=== PATIENT | female | born 1955 | race Caucasian/White ===

== ENCOUNTER → 2018-01-06 12:55 | Outpatient (CLI) | payer MEDICARE, MEDICAID, SELFPAY ==
--- NOTE | 2018-01-06 13:29 | CT_ITS ---
STUDY: LOW DOSE CT LUNG CANCER SCREENING REASON FOR EXAM: Female, 62 years old. LUNG SCREENING RADIATION DOSAGE (If Supplied By Facility): CTDIvol = ( 2.01 ) mGy, DLP = ( 59.42 ) mGycm TECHNIQUE: No contrast was administered. Low dose technique was utilized (average mAS-38 and kVp 120). 1.25 mm axial source images with a slice interval of 1.25-mm were reconstructed in lung windows. 2.5 mm axial source images with a slice interval of 2.5-mm were reconstructed in lung windows. 5.0 mm axial source images with a slice interval of 5.0-mm were reconstructed in soft tissue windows. Nodule measured using lung windows on PACS and/or independent workstation with automated measurement of minimum and maximum diameter. Nodule measurement reported as average diameter rounded to the nearest whole number. Growth is defined as an increase ins size of greater than 1.5 mm. COMPARISON: None. NODULES: Subpleural reticular opacities are seen in both lungs more prominent in lung bases suggesting chronic interstitial lung disease. Emphysematous changes are noted in both lungs more prominent in the upper lobes subpleural region. There is no demonstrated pleural abnormality. Normal heart and pericardium. Normal mediastinum. Normal hilar regions. Normal unenhanced pulmonary arteries. Normal aorta arch and descending thoracic aorta. There are multi-level degenerative changes of the thoracic spine. There is no demonstrated abnormality of the visualized upper abdomen. CT/Low Dose CT Lung Screening IMPRESSION: Lung-RADS category 2. Mild chronic interstitial lung disease. COPD and emphysema in both lungs more prominent in the upper lobes. Recommendation: Routine screening CT scan in one year. IMPORTANT NOTES FOR USE: ACR Lung-RADS Version 1.0 Assessment Categories Release Date: February 21, 2014 Category: Coded 0-4 bases on nodule(s) with highest degree of suspicion. Negative screen is defined as categories 1 and 2; a positive screen is defined as categories 3 and 4. Category 3 and 4A nodules that are unchanged on interval CT should be coded as category 2, and individuals returned to screening in 12 months. Category 4X: Category 3 or 4 nodules with additional imaging findings that increase the suspicion of lung cancer, such as spiculation, GGN that doubles in size in 1 year, enlarged lymph notes, etc. Category Modifiers: S (significant finding unrelated to lung cancer) and C (prior history of treated lung cancer) may be added to the 0-4 Lung-RADS Electronically Signed: Brielle Main MD at 7:10 EDT Tel , Service support ,
== END ==
PROVIDERS: PCP Nurse Practitioner Family; Visit Provider Internal Medicine
DX: Z12.2 Encounter for screening for malignant neoplasm of respiratory organs (principal); J44.9 Chronic obstructive pulmonary disease, unspecified; Z87.891 Personal history of nicotine dependence
CPT/HCPCS: G0297

== ENCOUNTER → 2018-01-07 10:08 | Outpatient (CLI) | payer MEDICARE, MEDICAID, SELFPAY ==
--- NOTE | 2018-01-07 10:11 | HPBD_ITS ---
STUDY: DUAL ENERGY X-RAY ABSORPTIOMETRY / DXA REASON FOR EXAM: Female, 62 years old. Early menopause. Loss of height of 2 inches. TECHNIQUE: Bone Mineral Density (BMD) measurements of lumbar spine and bilateral hips were obtained. COMPARISON: None. FINDINGS: Lumbar Spine (L1-L4): g/cm2 (1.045) / T-score (-1.0) / Z-score (0.2) Findings are suggestive of normal bone density with a low fracture risk. Left Femur Total: g/cm2 (0.937) / T-score (-0.6) / Z-score (0.4) Left Femoral Neck: g/cm2 (0.923) / T-score (-0.8) / Z-score (0.4) Right Femur Total: g/cm2 (0.914) / T-score (-0.7) / Z-score (0.2) Right Femoral Neck: g/cm2 (0.933) / T-score (-0.8) / Z-score (0.5) HPBD/Dexa Bone Density Study (HP) IMPRESSION: The patient is considered normal as outlined below according to World Chang Organization (WHO) criteria with a low fracture risk. Reference Information: The T-score is the number of standard deviations above or below the standard which is normal for young adults at their peak bone mineral density. The World Health Organization (WHO) interprets the T-scores as follows: Above -1 Normal bone density Between -1 and -2.5 Osteopenia Equal to / or below -2.5 Osteoporosis As a practical clinical guideline, osteopenia may be graded as follows: Mild -1 through -1.5 Moderate -1.6 through -2.0 Severe -2.1 through -2.4 The Z-score is the number of standard deviations above or below age-matched controls. A Z-score of less than -1.5 would be considered abnormal. References: 1. NIH Osteoporosis and Related Bone Diseases http://www.osteo.org 2. International Society for Clinical Densitometry http://www.iscd.org 3. National Osteoporosis Foundation http://www.nof.org Electronically Signed: Maxi Levy MD at 13:19 EDT Tel [phone], Service support ,
== END ==
PROVIDERS: Family Provider Internal Medicine; PCP Internal Medicine; Visit Provider Internal Medicine
DX: Z78.0 Asymptomatic menopausal state (principal)
CPT/HCPCS: 77080

== ENCOUNTER → 2018-03-18 13:22 | Outpatient (CLI) | payer MEDICARE, MEDICAID, SELFPAY ==
--- NOTE | 2018-03-18 13:26 | RAD_ITS ---
STUDY: X-RAY CHEST REASON FOR EXAM: Female, 62 years old. COPD. TECHNIQUE: COMPARISON: X-ray chest 10/12/2017. CT chest 01/06/2018. FINDINGS: Emphysema. Otherwise clear lungs. Normal cardiomediastinal silhouette. Mildly tortuous descending thoracic aorta without significant ectasia. No acute osseous or upper abdominal process. RAD/Chest PA and Lateral IMPRESSION: No acute cardiopulmonary process. Underlying COPD/emphysema is well characterized on the CT study of 01/06/2018, low-dose CT chest screening examination. On that study there were features of panlobular emphysema, most prominent at the apices. There was generalized hyperlucency. Electronically Signed: Derek Khan, at 18:01 EDT Tel , Service support ,
== END ==
PROVIDERS: Family Provider Internal Medicine; PCP Internal Medicine; Visit Provider Internal Medicine
DX: J44.9 Chronic obstructive pulmonary disease, unspecified (principal)
CPT/HCPCS: 71046

== ENCOUNTER 2018-04-03 04:50 | Emergency (ER) | payer MEDICARE, MEDICAID, SELFPAY ==
--- NOTE | 2018-04-03 04:50 | DT_ITS ---
This patient was seen during an EMR downtime March 30, 2018 - April 06, 2018. This patient may have a combination of paper and electronic documentation or all paper documentation. All documentation is viewable within the e-chart portion of [employer] for each patient visit.
--- NOTE | 2018-04-03 05:00 | RAD_ITS ---
STUDY: X-RAY CHEST REASON FOR EXAM: Female, 62 years old. Cough TECHNIQUE: Frontal view COMPARISON: None. FINDINGS: The lungs are clear and expanded. There is no demonstrated pleural abnormality. Normal size heart. Normal mediastinum and sisi. Normal visualized pulmonary arteries. Normal visualized aortic arch and descending thoracic aorta. Normal visualized thoracic spine. Normal visualized ribs, clavicles, and shoulders. There is no demonstrated abnormality of the visualized soft tissue structures of the upper abdomen. RAD/Chest 1 View (Portable) IMPRESSION: Normal x-ray examination of the chest. Electronically Signed: Michi Butler MD at 5:59 EDT , Service support ,
[2018-04-06 17:32] LABS: Absolute Lymphocyte Count 0.81 X10^3/ul (0.83-4.51); Absolute Neutrophil Count 6.1 X10^3/uL (2.0-7.7); Basophil# 0.02 X10^3/uL; Basophil% 0.3 % (0-1); Eosinophil# 0.01 X10^3/uL; Eosinophils% 0.1 % (0-5); Hematocrit 41.4 % (37-47); Hemoglobin 14.7 g/dl (12.0-15.0); Lymphocyte # 0.81 X10^3/ul (4.0); Lymphocyte % 10.8 % (19-41); Mean Corp Hgb Conc 35.5 g/gl (32-36); Mean Corpuscular Hgb 33.6 pg (27.0-32.0); Mean Corpuscular Volume 94.7 fL (81-99); Mean Platelet Vol. 8.5 fl (6.2-12.0); Monocyte# 0.57 X10^3/uL; Monocyte% 7.6 % (0-10); Neutrophil % 80.9 % (47-70); POSITIVE COUNT NO; POSITIVE DIFFERENTIAL NO; POSITIVE MORPHOLOGY NO; Platelet Count 266 K/mm3 (150-450); RBC Distribution Width CV 16.2 % (11.6-14.6); RBC Distribution Width SD 54.1 fl (35.1-43.9); Red Blood Count 4.37 M/mm3 (4.2-5.4); White Blood Count 7.5 K/mm3 (4.4-11.0)
[2018-04-06 22:54] LABS: BUN 19 mg/dL (7-18); Glucose 119 mg/dL (74-106)
[2018-04-06 22:55] LABS: ALB/GLOB Ratio 0.7 RATIO (0.9-2.4); AST(SGOT) 22 U/L (15-37); Alanine Aminotransfer ALT/SGPT 23 U/L (13-56); Albumin, Serum 4.1 g/dL (3.2-5.0); Alkaline Phosphatase 66 U/L (45-117); Anion Gap 13 (5-15); Calcium,Total 9.3 mg/dL (8.5-10.1); Chloride 99 mmol/L (98-107); EST Glomerular Filtration Rate 60 mL/min (>60); Est Glom Filt Rate - Afr Amer 73 mL/min (>60); Globulin 5.6 g/dL (2.2-4.2); Lipase 404 U/L (73-393); Potassium 3.9 mmol/L (3.5-5.1); Protein, Total 9.7 g/dL (6.4-8.2); Sodium Level 136 mmol/L (136-145)
== END 2018-04-03 07:30 | disposition home or self-care (01) ==
PROVIDERS: Emergency Provider Emergency Medicine; Family Provider Internal Medicine; PCP Internal Medicine
DX: R11.2 Nausea with vomiting, unspecified (principal); M06.9 Rheumatoid arthritis, unspecified; E03.9 Hypothyroidism, unspecified; I10 Essential (primary) hypertension; E78.5 Hyperlipidemia, unspecified; M32.9 Systemic lupus erythematosus, unspecified; Z86.73 Personal history of transient ischemic attack (TIA), and cerebral infarction without residual deficits; Z79.899 Other long term (current) drug therapy
CPT/HCPCS: 36415; 71045; 80053; 83690; 85025; 96361; 96374; 99283; A4216

== ENCOUNTER → 2018-05-11 10:49 | Outpatient (CLI) | payer MEDICARE, MEDICAID, SELFPAY ==
[2018-05-11 11:34] LABS: Erythrocyte Sedimentation Rate 19 mm/hr (0-30)
[2018-05-11 11:43] LABS: BUN 22 mg/dL (7-18); Creatinine, Serum 0.83 mg/dL (0.55-1.02); EST Glomerular Filtration Rate 74 mL/min (>60); Est Glom Filt Rate - Afr Amer 90 mL/min (>60)
== END ==
PROVIDERS: Family Provider Internal Medicine; PCP Internal Medicine; Visit Provider Psychiatry & Neurology Neurology
DX: R51 Headache (principal)
CPT/HCPCS: 36415; 82565; 84520; 85652

== ENCOUNTER 2018-05-11 16:10 | Emergency (ER) | payer MEDICARE, MEDICAID, SELFPAY ==
[2018-05-11 16:12] VITALS: BP 145/95; PULSE 91; RESP 18; TEMP 36.7; O2SAT 94; BMI 27.1
--- NOTE | 2018-05-11 16:18 | RAD_ITS ---
STUDY: X-RAY - LEFT HAND REASON FOR EXAM: Female, 62 years old. Left hand pain and swelling, third through fifth metacarpal TECHNIQUE: 3 view(s) of the hand. COMPARISON: None. FINDINGS: No acute fracture or dislocation. Mild age-related degenerative changes. No significant soft tissue swelling. Prominent degenerative change at the first carpometacarpal joint RAD/Hand Min 3 Views IMPRESSION: As above Electronically Signed: Octavio Pedersen DO at 16:33 EDT Tel , Service support ,
--- NOTE | 2018-05-11 17:37 | ED.VISSUMM ---
- ER Visit Summary Date of Service: 05/11/18 Chief Complaint: Hand injury History of Present Illness: The patient is a 62 F who tripped and fell on the sidewalk in the parking lot here at the hospital earlier this morning. She thought she was okay after going home had increasing left hand pain is mild swelling. She denies striking her head. She is left-hand dominant. Physical Examination: Vital signs are unremarkable. Patient sitting in the mujica chair. She is in no acute distress. Head neck examination was no obvious external trauma. Left upper extremity examination reveals mild tenderness and mild edema to the left third MCP joint. There is full range of motion. She is normal cap refill and sensation distally. There is no tenderness at the elbow or shoulder. Test Results: Left hand x-rays were obtained per nursing protocol. There is no evidence of fracture or dislocation. There is mild degenerative changes noted. Emergency Department Course and Treatment: Gildardo wrap was placed in the wound. She will take Tylenol or ibuprofen at home. Treatment Plan: [] Disposition: Discharge Impression: Left hand contusion status post fall This note was generated with [employer] dictation software. It may contain incorrect words, spelling, and punctuation that were not noted in review of the chart prior to signing ED Disposition - Plan for ED Patient: Chief Complaint: Upper Extremity Injury Referrals: Allison More DO [Primary Care Provider] -
--- NOTE | 2018-05-11 17:39 | ED.DEP ---
ED Disposition - Plan for ED Patient: Disposition: Home or Assisted Living Chief Complaint: Upper Extremity Injury Instructions: ED Contusion Hand Referrals: Allison More DO [Primary Care Provider] - Keep Yin appointment
== END 2018-05-11 17:52 | disposition home or self-care (01) ==
PROVIDERS: Emergency Provider Emergency Medicine; Family Provider Internal Medicine; PCP Internal Medicine
DX: S60.222A Contusion of left hand, initial encounter (principal); W18.09XA Striking against other object with subsequent fall, initial encounter; Y93.89 Activity, other specified; Y92.481 Parking lot as the place of occurrence of the external cause; Y99.9 Unspecified external cause status; I25.2 Old myocardial infarction; Z86.73 Personal history of transient ischemic attack (TIA), and cerebral infarction without residual deficits; I10 Essential (primary) hypertension; E78.00 Pure hypercholesterolemia, unspecified; Z72.0 Tobacco use
CPT/HCPCS: 36415; 73130; 82565; 84520; 85652; 99282

== ENCOUNTER 2018-06-20 09:57 | Inpatient (IN) | payer MEDICARE, MEDICAID, SELFPAY ==
[2018-06-20] VITALS (13 sets, daily range): BP systolic 109–148; BP diastolic 73–110; PULSE 75–139; RESP 16–21; TEMP 36.1–37.1; O2SAT 94–98; BMI 26.6; BMI 27.2
--- NOTE | 2018-06-20 10:27 | ED.DCSUM_ITS ---
- ER Visit Summary Date of Service: 06/20/18 Chief Complaint: GI bleed History of Present Illness: The patient is a 62 F with abdominal cramping started yesterday. She had bloody stool overnight on several occasions. She denies history of similar. She has no known history of ulcerative clivus, Crohn 's, diverticulitis. She does report having one prior colonoscopy the past. Physical Examination: Vital signs are unremarkable. Patient sitting upright in bed no acute distress. Heart is regular rate and rhythm. Lung sounds are clear. Abdomen is soft and nontender on exam. Hypoactive bowel sounds are present throughout. Test Results: CBC was a white count 11.5 and hemoglobin is 16.6. She does have a left shift with 81% neutrophils. Chemistry studies reveal BUN 32 and creatinine 1.23. Coags are normal. CT abdomen pelvis with contrast reveals colitis of the descending colon from the splenic flexure to the rectum. Based on the pattern that is noted C. difficile is considered. In light of the stool studies have been ordered. Emergency Department Course and Treatment: Patient's been given IV fluids along with Cipro and Flagyl. She will be admitted. I did speak with Dr. Dove who will see the patient if needed. Treatment Plan: [] Disposition: Admit Impression: Colitis with bloody stool This note was generated with [employer] dictation software. It may contain incorrect words, spelling, and punctuation that were not noted in review of the chart prior to signing ED Disposition - Plan for ED Patient: Chief Complaint: GI Bleed Referrals: Allison More DO [Primary Care Provider] -
[2018-06-20] MEDS: 0.9% Normal Saline 1,000 ML 150 ML IV (10:35)
[2018-06-20 10:46] LABS: Absolute Lymphocyte Count 1.34 X10^3/ul (0.83-4.51); Absolute Neutrophil Count 9.4 X10^3/uL (2.0-7.7); Basophil# 0.01 X10^3/uL; Basophil% 0.1 % (0-1); Hematocrit 48.1 % (37-47); Hemoglobin 16.6 g/dl (12.0-15.0); Lymphocyte # 1.34 X10^3/ul (4.0); Lymphocyte % 11.6 % (19-41); Mean Corp Hgb Conc 34.5 g/gl (32-36); Mean Corpuscular Volume 101.5 fL (81-99); Mean Platelet Vol. 8.9 fl (6.2-12.0); Monocyte# 0.82 X10^3/uL; Monocyte% 7.1 % (0-10); Neutrophil # 9.35 X10^3/uL (2.7-7.7); Neutrophil % 81.1 % (47-70); POSITIVE COUNT NO; POSITIVE DIFFERENTIAL NO; POSITIVE MORPHOLOGY NO; Platelet Count 256 K/mm3 (150-450); RBC Distribution Width CV 13.8 % (11.6-14.6); RBC Distribution Width SD 51.3 fl (35.1-43.9); Red Blood Count 4.74 M/mm3 (4.2-5.4); White Blood Count 11.5 K/mm3 (4.4-11.0)
[2018-06-20 10:56] LABS: International Normalized Ratio 0.9; Prothrombin Time (Protime)PT. 12.2 SECONDS (11.7-14.9)
[2018-06-20 10:57] LABS: Anion Gap 14 (5-15); BUN 32 mg/dL (7-18); Calcium,Total 9.5 mg/dL (8.5-10.1); Chloride 102 mmol/L (98-107); Creatinine, Serum 1.23 mg/dL (0.55-1.02); EST Glomerular Filtration Rate 47 mL/min (>60); Est Glom Filt Rate - Afr Amer 57 mL/min (>60); Glucose 131 mg/dL (74-106); Partial Thromboplast Time 30.8 Seconds (24.1-36.2); Sodium Level 138 mmol/L (136-145)
[2018-06-20] MEDS: Ciprofloxacin 400 MG/200 ML BAG 200 MG IV ×2 (13:05→22:27)
[2018-06-20] MEDS: metroNIDAZOLE 500 MG Tablet PO ×2 (13:05→22:29)
--- NOTE | 2018-06-20 13:43 | PCM.HP.STD ---
Problem List (1) Rheumatoid arthritis Status: Chronic (2) History of intracranial hemorrhage Status: Chronic (3) Hypothyroidism Status: Chronic (4) Seizure disorder Status: Chronic (5) History of craniotomy Status: Chronic (6) HLD (hyperlipidemia) Status: Chronic Qualifiers: (7) Depression with anxiety Status: Chronic (8) HTN (hypertension) Status: Chronic Qualifiers: History of Present Illness Date of Admission: 06/20/18 Chief Complaint: Bleeding per rectum. The patient is a 62 year old F with past medical history as mentioned above presented to the emergency room because of blood in the stool. Patient did not feel right yesterday and she had a bowel movement last night that was bloody. When she had a bowel movement last night, she did not realize that there is blood there because she did not turn the bathroom light on and this morning, she realized that her last night bowel movement was bloody. She complained of abdominal pain that has been going on for 2-3 days, estimated on the right side of her abdomen, described as cramping, 4-5 out of 10 in severity, not radiating, associated with nausea as well as vomiting and without aggravating or relieving factors. Denies fever or chills. She denied chest pain or shortness of breath. She mentioned that she picked up food from the food bank couple weeks ago and she thinks that food might causing some of her symptoms. She denied recent travel or recent use of antibiotics. In the emergency department, patient was tachycardic, other vital signs were stable. Routine blood work was remarkable for mild leukocytosis and creatinine of 1.23, BUN was 32. CT scan abdomen and pelvis with contrast revealed findings consistent with colitis involving the descending colon from the splenic flexure down to the rectum. She is being admitted for acute colitis which is probably infectious in etiology as well as acute kidney injury. Past Medical History Past Medical History (Chronic Problems): Chronic Problems (Last Updated 10/29/17 @ 15:01 by Zoraida Katz) Rheumatoid arthritis (Chronic) History of intracranial hemorrhage (Chronic) Hypothyroidism (Chronic) Seizure disorder (Chronic) Non-STEMI (non-ST elevated myocardial infarction) (Chronic) Normal coronaries per [facility] 09/29/[address] [facility] per Dr. Dietrich History of left heart catheterization (LHC) (Chronic 10/08/17) History of craniotomy (Chronic) HLD (hyperlipidemia) (Chronic) Depression with anxiety (Chronic) HTN (hypertension) (Chronic) Medical History: Medical History (Last Updated 10/29/17 @ 15:01 by Zoraida Katz) Rheumatoid arthritis (Chronic) M06.9 History of intracranial hemorrhage (Chronic) Z86.79 Hypothyroidism (Chronic) E03.9 Seizure disorder (Chronic) G40.909 Non-STEMI (non-ST elevated myocardial infarction) (Chronic) I21.4 Normal coronaries per [facility] 09/29/[address] [facility] per Dr. Dietrich HLD (hyperlipidemia) (Chronic) E78.5 Depression with anxiety (Chronic) F41.8 HTN (hypertension) (Chronic) I10 Allergies aspirin [ASA] Adverse Reaction (Verified 06/20/18 10:01) Upset Stomach nicotine Adverse Reaction (Verified 06/20/18 10:01) Unknown Home Medications: Ambulatory Orders Medication Instructions Recorded Venlafaxine XR [Effexor Xr] 150 mg PO DAILY 08/29/17 amlodipine 5 mg tablet 5 mg PO DAILY #90 tab 10/28/17 lisinopril 5 mg tablet 5 mg PO DAILY #90 tab 10/28/17 metoprolol tartrate 25 mg tablet 25 mg PO BID #120 tab 10/28/17 simvastatin 40 mg tablet 40 mg PO QHS #90 tab 10/28/17 clonazepam 0.5 mg tablet 0.5 mg PO .daily PRN #30 tab 01/02/18 omeprazole 40 mg capsule,delayed 40 mg PO QDAY #90 cap 03/03/18 release levetiracetam 500 mg tablet 500 mg PO BID #60 tab 05/29/18 Folic Acid [Folic Acid] 1 tab PO DAILY 06/20/18 Levothyroxine [Synthroid] 200 mcg PO DAILY@0600 06/20/18 Methotrexate [Methotrexate] 6 tab PO QWEEK 06/20/18 Prednisone [Prednisone] 10 mg PO DAILY 06/20/18 Surgical History: Surgical History (Last Reviewed 10/28/17 @ 11:49 by Bonifacio Dietrich MD) History of left heart catheterization (LHC) (Chronic) Onset Date: 10/08/17 Z98.890 History of craniotomy (Chronic) Z98.890 History of Z98.891 Surgical History: cholecystectomy, - - Craniectomy. 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 Denies: Chills, Fever, Weakness Eyes: Denies: Blurred vision, Conjunctivae Inflammation, Double vision, Drainage, Redness HEENT: Denies: Difficulty Hearing, Ear Pain, Eye Pain, Nasal Congestion, Sore Throat Cardiovascular: Denies: Chest Pain, Chest Pressure, Chest Tightness, Heaviness, Light Headedness, Palpitations, Syncope Respiratory: Denies: Cough, Pleuritic Pain, Shortness of Breath, Sputum production, Wheezing Gastrointestinal: Reports: Abdominal Pain, Hematochezia, Nausea, Vomiting. Denies: Constipation, Diarrhea, Melena Genitourinary: Denies: Dysuria, Frequency, Hematuria Musculoskeletal: Denies: Arm Pain, Back Pain, Foot Pain Skin: Denies: Dryness, Rash Neurological: Denies: Balance problems, Double vision, Change in Speech, Slurred speech, Confusion, Headaches, Incoordination, Numbness Psychiatric: Reports: Anxiety, Depression Endocrine: Denies: Change in Body Habitus, Polydipsia VTE Information - Inpt Only VTE Present on Admission: No VTE Mechan Device Prophylaxis: SCD's VTE Pharm Prophylaxis ordered?: No - Physical Exam General: Alert, Oriented x3, Cooperative, No apparent distress HEENT: Atraumatic, PERRLA, EOMI, Normocephalic Oral: Moist Mucosa, No Gingival or Mucosal Lesions/ Ulcerations Neck: Supple, No JVD, Negative Carotid Bruits, Trachea Midline, Thyroid Normal Size and Texture Lungs: Clear to auscultation, No wheeze, No rales, Diminished, Rhonchi Cardiovascular: Regular rate, Regular Rhythm, Normal S1, Normal S2, PMI Normal, Tachycardic Abdomen: Bowel Sounds Present, Soft, Non Tender, Non-Distended, No Hepato-splenomegaly Extremities: No clubbing, No cyanosis, No edema Skin: No rashes, No breakdown Lymphatic: No Cervical, Supraclavicular, or Inguinal Adenopathy Neurological: Cranial nerves II-XII grossly intact, Motor Exam 5/5 strength throughout Psych/Mental Status: Normal Affect, Appropriate, Alert and oriented to time, place, person, mood and affect Vital Signs Temp Pulse Resp BP Pulse Ox 97.5 F L 94 21 H 113/88 H 98 06/20/18 09:58 06/20/18 12:13 06/20/18 11:32 06/20/18 11:32 06/20/18 11:32 Oxygen Delivery Method Room Air Weight: 155 lb 6.814 oz Body Mass Index (BMI) 26.6 Laboratory Tests Past 24 Hrs 06/20/18 06/20/18 06/20/18 10:30 10:30 10:30 WBC 11.5 H RBC 4.74 Hgb 16.6 H Hct 48.1 H MCV 101.5 H MCH 35.0 H MCHC 34.5 RDW 13.8 RDW Differential 51.3 H Plt Count 256 MPV 8.9 Immature Gran % (Auto) 0.100 Neut % (Auto) 81.1 H Lymph % (Auto) 11.6 L [place] % (Auto) 7.1 Eos % (Auto) 0.0 Baso % (Auto) 0.1 Absolute Neuts (auto) 9.4 H Absolute Lymphs (auto) 1.34 Total Counted Not Reportable PT 12.2 INR 0.9 APTT 30.8 Sodium 138 Potassium 4.0 Chloride 102 Carbon Dioxide 22.0 Anion Gap 14 BUN 32 H Creatinine 1.23 H Estim Creat Clear Calc 42.00 Est GFR (MDRD) Af Amer 57 L Est GFR (MDRD) Non-Af 47 L BUN/Creatinine Ratio 26.0 H Glucose 131 H Calcium 9.5 Clinical Impression(s) from Imaging Studies Abdomen/Pelvis CT 06/20/18 10:17 IMPRESSION: Findings are most consistent colitis of the descending colon from the splenic flexure to the rectum. Given the pattern consider pseudomembranous colitis/C. difficile. Status post cholecystectomy. Benign-appearing left renal cyst. Atherosclerotic disease of the aorta Degenerative change of the thoracolumbar spine. N.B. : The above information has been verbally conveyed by Elaine Najera MD to Dr Dorsey , Covering Physician, on 06/20/2018 12:25:48 (ET). Electronically Signed: Elaine Najera MD at 12:17 EDT Tel , Service support , Assessment/Plan This is a 62 years old female patient presented to the medicine because of bloody stool as well as abdominal pain with nausea and vomiting and she was found to have acute colitis on CT scan abdomen and she is being admitted for evaluation and treatment. #1 acute colitis of the descending colon: CT scan abdomen and pelvis revealed findings consistent with acute colitis of the descending colon from the splenic flexure down to the rectum. It could be due to infectious colitis. Patient reported rectal bleeding ?1. Hemoglobin and hematocrit are stable. Apart from mild tachycardia, other vital signs are stable. Patient denied any personal or family history of inflammatory bowel disease. [facility], cardiac monitoring, IV fluids, keep on clear liquids, IV morphine as needed for pain, IV antiemetics, start IV ciprofloxacin and oral Flagyl for suspected C. difficile colitis, stool for C. difficile, stool for ova and parasites, stool for enteric pathogens, will check LFT, lipase and lactic acid, repeat CBC and BMP tomorrow morning. #2 lower GI bleed: Secondary to above. Patient had one episode of bleeding per rectum, it was bright red blood. At this time, she has no active bleeding. Her vital signs are stable except mild tachycardia. Hematocrit and hemoglobin are stable. Pro time and INR were normal as well as platelet count. Plan as above. #3 acute kidney injury: Secondary to above in addition to dehydration and poor oral intake. Her baseline kidney function is normal, most recent creatinine was 0.831 month ago. Admission creatinine is 1.23, BUN is 32. Plan: IV fluids as above, input output chart, repeat BMP tomorrow morning. #4 hypertension: Blood pressure stable, continue Norvasc, lisinopril and metoprolol. #5 seizure disorder: Continue Keppra. #6 rheumatoid arthritis: Stable, no acute issues. Continue prednisone and methotrexate. #7 history of brain aneurysm/intracranial hemorrhage: Status post craniectomy. Stable, no acute issues. #8 hyperlipidemia: Continue statins. #9 hypothyroidism: Continue levothyroxine. #10 DVT prophylaxis: SCDs. This note was generated with [employer] software. It may contain incorrect words, spelling, and punctuation that were not noted in checking the note before signing. Code Visit Inpatient E&M: 94680 Init Hosp L3
--- NOTE | 2018-06-20 13:55 | ED.RN ---
PER LAB NOT ENOUGH STOOL WAS OBTAINED FOR O&P TEST. PT ASSIGNED NURSE NOTIFIED.
[2018-06-20 16:05] LABS: AST(SGOT) 20 U/L (15-37); Alanine Aminotransfer ALT/SGPT 23 U/L (13-56); Albumin, Serum 3.4 g/dL (3.2-5.0); Alkaline Phosphatase 56 U/L (45-117); Bilirubin, Direct 0.12 mg/dL (0.00-0.30); Globulin 4.6 g/dL (2.2-4.2); Lipase 216 U/L (73-393)
[2018-06-20 16:10] LABS: Lactic Acid 1.2 mmol/L (0.4-2.0)
[2018-06-20] MEDS: 0.9% Normal Saline 1,000 ML 100 ML IV (16:24)
[2018-06-20] MEDS: Atorvastatin Calcium 20 MG Tablet PO (22:28)
[2018-06-20] MEDS: levETIRAcetam 500 MG Tablet PO (22:28)
[2018-06-20] MEDS: Metoprolol Tartrate 25 MG Tablet PO (22:28)
[2018-06-20] MEDS: MELATONIN 10 MG TABLET PO (22:35)
[2018-06-21] VITALS (12 sets, daily range): BP systolic 108–118; BP diastolic 69–81; PULSE 60–101; RESP 16–18; TEMP 36.4–36.9; O2SAT 92–100; BMI 27.2
[2018-06-21] MEDS: 0.9% Normal Saline 1,000 ML 100 ML IV ×2 (03:25→15:11)
[2018-06-21] MEDS: Levothyroxine 100 MCG Tablet 200 MCG PO (05:53)
[2018-06-21] MEDS: metroNIDAZOLE 500 MG Tablet PO (05:53)
[2018-06-21 07:39] LABS: Differential Indicated SCAN CRITERIA MET; Hematocrit 38.4 % (37-47); Hemoglobin 12.7 g/dl (12.0-15.0); Mean Corp Hgb Conc 33.1 g/gl (32-36); Mean Corpuscular Hgb 34.2 pg (27.0-32.0); Mean Corpuscular Volume 103.5 fL (81-99); Neutrophil % 71.7 % (47-70); POSITIVE COUNT YES; POSITIVE DIFFERENTIAL NO; POSITIVE MORPHOLOGY NO; RBC Distribution Width CV 14.4 % (11.6-14.6); RBC Distribution Width SD 52.3 fl (35.1-43.9); Red Blood Count 4.71 M/mm3 (4.2-5.4)
[2018-06-21 07:40] LABS: Absolute Lymphocyte Count 0.97 X10^3/ul (0.83-4.51); Absolute Neutrophil Count 4.3 X10^3/uL (2.0-7.7); Basophil# 0.02 X10^3/uL; Basophil% 0.3 % (0-1); Eosinophil# 0.03 X10^3/uL; Eosinophils% 0.5 % (0-5); Lymphocyte # 0.97 X10^3/ul (4.0); Lymphocyte % 16.1 % (19-41); Monocyte# 0.67 X10^3/uL; Monocyte% 11.1 % (0-10); Neutrophil # 4.31 X10^3/uL (2.7-7.7)
--- NOTE | 2018-06-21 07:57 | PCM.PROGNOTE ---
Subjective: Chief complaint: Follow-up after admission for acute colitis, lower GI bleed and acute kidney injury. - Physical Exam General: Alert, Oriented x3, Cooperative, No apparent distress HEENT: Atraumatic, PERRLA, EOMI, Normocephalic Oral: Moist Mucosa, No Gingival or Mucosal Lesions/ Ulcerations Neck: Supple, No JVD, Negative Carotid Bruits, Trachea Midline, Thyroid Normal Size and Texture Lungs: Clear to auscultation, Normal air movement, No rhonchi, No wheeze, No rales Cardiovascular: Regular rate, Regular Rhythm, Normal S1, Normal S2, PMI Normal Abdomen: Bowel Sounds Present, Soft, Non Tender, Non-Distended, No Hepato-splenomegaly Extremities: No clubbing, No cyanosis, No edema Skin: No rashes, No breakdown Lymphatic: No Cervical, Supraclavicular, or Inguinal Adenopathy Neurological: Cranial nerves II-XII grossly intact, Neuro grossly intact Psych/Mental Status: Normal Affect, Appropriate Vital Signs Temp Pulse Resp BP Pulse Ox 98.5 F 101 H 16 118/81 H 92 06/21/18 03:30 06/21/18 03:30 06/21/18 03:30 06/21/18 03:30 06/21/18 03:30 Oxygen Delivery Method Room Air Weight: 158 lb 11.725 oz Body Mass Index (BMI) 27.2 Intake and Output for Last 24 Hours 06/19/18 06/20/18 06/21/18 23:59 23:59 23:59 Intake Total 120 / 120 2221 / 2221 Balance 120 / 120 2221 / 2221 Laboratory Tests Past 24 Hrs 06/20/18 06/20/18 06/21/18 15:28 15:28 06:30 WBC 6.0 RBC 4.71 Hgb 12.7 Hct 38.4 MCV 103.5 H MCH 34.2 H MCHC 33.1 RDW 14.4 RDW Differential 52.3 H Plt Count Not Reportable Immature Gran % (Auto) 0.300 Neut % (Auto) 71.7 H Lymph % (Auto) 16.1 L [place] % (Auto) 11.1 H Eos % (Auto) 0.5 Baso % (Auto) 0.3 Absolute Neuts (auto) 4.3 Absolute Lymphs (auto) 0.97 Total Counted Pending Sodium Potassium Chloride Carbon Dioxide Anion Gap BUN Creatinine Estim Creat Clear Calc Est GFR (MDRD) Af Amer Est GFR (MDRD) Non-Af BUN/Creatinine Ratio Glucose Lactic Acid 1.2 Calcium Total Bilirubin 0.40 Direct Bilirubin 0.12 AST 20 ALT 23 Alkaline Phosphatase 56 Total Protein 8.0 Albumin 3.4 Globulin 4.6 H Lipase 216 06/21/18 06:35 WBC RBC Hgb Hct MCV MCH MCHC RDW RDW Differential Plt Count Immature Gran % (Auto) Neut % (Auto) Lymph % (Auto) [place] % (Auto) Eos % (Auto) Baso % (Auto) Absolute Neuts (auto) Absolute Lymphs (auto) Total Counted Sodium Cancelled Potassium Cancelled Chloride Cancelled Carbon Dioxide Cancelled Anion Gap Cancelled BUN Cancelled Creatinine Cancelled Estim Creat Clear Calc Cancelled Est GFR (MDRD) Af Amer Cancelled Est GFR (MDRD) Non-Af Cancelled BUN/Creatinine Ratio Cancelled Glucose Cancelled Lactic Acid Calcium Cancelled Total Bilirubin Direct Bilirubin AST ALT Alkaline Phosphatase Total Protein Albumin Globulin Lipase Medical Necessity - Tobacco Use Smoking Status: Current every day smoker Assessment/Plan This is a 62 years old female patient presented to the medicine because of bloody stool as well as abdominal pain with nausea and vomiting and she was found to have acute colitis on CT scan abdomen and she is being admitted for evaluation and treatment. #1 acute colitis of the descending colon: Unclear etiology, could be due to infectious colitis. She is on IV ciprofloxacin and oral Flagyl. Stool for C. difficile and enteric pathogens came back negative. Patient symptoms improved, still having bleeding per rectum. Her vital signs are stable. Her white blood cell count is back to normal, hemoglobin and hematocrit are stable. Patient does have a history of hemorrhoids as well. Plan: Change Flagyl to IV Flagyl, continue IV ciprofloxacin, general surgery consult. #2 lower GI bleed: Secondary to above. Also, patient has history of hemorrhoids. Her hemoglobin dropped down to 12.7 g/dL but could be also due to dilution. Her vital signs are stable. Her pro time and INR were normal. Plan for general surgery consult as above, patient may need colonoscopy. #3 acute kidney injury: Secondary to above in addition to dehydration and poor oral intake. She is on IV fluids. Her baseline kidney function is normal, most recent creatinine was 0.831 month ago. BMP from today is pending. #4 hypertension: Blood pressure stable, continue Norvasc, lisinopril and metoprolol. #5 seizure disorder: Continue Keppra. #6 rheumatoid arthritis: Stable, no acute issues. Continue prednisone and methotrexate. #7 history of brain aneurysm/intracranial hemorrhage: Status post craniectomy. Stable, no acute issues. #8 hyperlipidemia: Continue statins. #9 hypothyroidism: Continue levothyroxine. #10 DVT prophylaxis: SCDs. This note was generated with [employer] dictation software. It may contain incorrect words, spelling, and punctuation that were not noted in checking the note before signing. Code Visit Inpatient E&M: 37552 Subs Hosp L2
[2018-06-21 08:01] LABS: Mean Platelet Vol. 9.5 fl (6.2-12.0); Platelet Count 134 K/mm3 (150-450)
[2018-06-21 08:02] LABS: Differential Comment SCANNED
[2018-06-21] MEDS: Folic Acid 1 MG Tablet PO (08:18)
[2018-06-21] MEDS: predniSONE 10 MG Tablet PO (08:18)
[2018-06-21 08:38] LABS: Anion Gap 9 (5-15); BUN 15 mg/dL (7-18); BUN/Creat Ratio 22.9 RATIO (10-20); Calcium,Total 8.1 mg/dL (8.5-10.1); Chloride 111 mmol/L (98-107); Creatinine, Serum 0.66 mg/dL (0.55-1.02); EST Glomerular Filtration Rate 98 mL/min (>60); Est Glom Filt Rate - Afr Amer 118 mL/min (>60); Estimated Creatinine Clearance 78.27 ml/min; Glucose 93 mg/dL (74-106); Potassium 3.8 mmol/L (3.5-5.1); Sodium Level 141 mmol/L (136-145)
[2018-06-21] MEDS: Metoprolol Tartrate 25 MG Tablet PO ×2 (10:34→21:19)
[2018-06-21] MEDS: Venlafaxine XR 150 MG Capsule PO (10:34)
[2018-06-21] MEDS: levETIRAcetam 500 MG Tablet PO ×2 (10:34→21:19)
[2018-06-21] MEDS: Lisinopril 5 MG Tablet PO (10:35)
[2018-06-21] MEDS: amLODIPine 5 MG Tablet PO (10:35)
[2018-06-21] MEDS: Ciprofloxacin 400 MG/200 ML BAG 200 MG IV ×2 (10:43→22:53)
[2018-06-21] MEDS: clonazePAM 0.5 MG Tablet PO (10:44)
--- NOTE | 2018-06-21 12:06 | PCM.CONS.B ---
- Consult Date of Consult: 06/21/18 - Reason for Consult Chief Complaint: bloody stools, abdominal pain History of Present Illness: 62 y/o WF presents with Denies inflammatory bowel disease in the family such as ulcerative colitis or Crohn's. Denies colon cancer in the family. Complaint of crampy lower abdominal pain for the past few days. WBC initially upon admission 11.5K, today 6K, still with slight left shift of differential CT scan in ED - thick walled descending colon to rectum, calcifications of aorta Has not been feeling right, just feeling weak and lethargic. denies fevers. Past Medical History: history of cerebral aneurysm rupture depression disorder - has been seen by psychiatry CAD Hypertension rheumatoid arthritis/lupus seizure disorder Past Surgical History: Tracheostomy Craniotomy for brain aneurysm rupture Intracranial cerebral coils placed for aneurysms Csection cholecystectomy PEG Medications: Venlafaxine XR [Effexor Xr] 150 mg PO DAILY amlodipine 5 mg tablet 5 mg PO DAILY #90 tab lisinopril 5 mg tablet 5 mg PO DAILY #90 tab metoprolol tartrate 25 mg tablet 25 mg PO BID #120 tab simvastatin 40 mg tablet 40 mg PO QHS #90 tab clonazepam 0.5 mg tablet 0.5 mg PO .daily PRN #30 tab omeprazole 40 mg capsule,delayed 40 mg PO QDAY #90 cap release levetiracetam 500 mg tablet 500 mg PO BID #60 tab Folic Acid [Folic Acid] 1 tab PO DAILY 06/20/18 Levothyroxine [Synthroid] 200 mcg PO DAILY@0600 Methotrexate [Methotrexate] 6 tab PO QWEEK Prednisone [Prednisone] 10 mg PO DAILY Allergies: aspirin, nicotine Social history: TOB use yes Lives alone Review of Systems: General - had weight loss due to hospitalization for brain aneurysm rupture (200# - 137#) Cardiovascular states that she had a small IA in the past 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, 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, superintendent container terminal TOB use Gastrointestinal as per HPI, denies blood in stools, had colonoscopy 5-6 years ago Neurological history of cerebral aneurysm rupture Genitourinary denies burning with urination, denies blood in urine Hematological denies spontaneous/prolonged bleeding Skin denies open non healing wounds Musculoskeletal has some back/joint pain Endocrine denies diabetes Psychological has stress in life - recently moved to [place] in past year from [place], history of depression, states that stress caused her to have two mini strokes and IA Physical examination: Vital signs Temp 98.4F RR 18 BP 108/69 HR 68 General WD/WN WF in no apparent distress, alert and oriented, not septic appearing Head Normocephalic. Eyes: EOM intact with sclera clear and no icterus noted. Mouth: clear - upper dentures, poor lower dentition Neck is supple with no jugular venous distention noted. Trachea is midline. No carotid bruits noted. Lungs normal breath sounds in all lung landry. No rales/rhonchi/wheezing noted. No labored breathing noted, such as retractions. No cough heard. Heart normal S1 and S2 auscultated. No rubs/clicks/murmurs noted. Abdomen soft and benign. Normal bowel sounds Extremities no calf tenderness noted. No pitting edema noted. Genitourinary/Rectal deferred Skin normal skin integrity. Neurological non focal. Psychological normal affect, patient is calm and appropriate Impression: abnormal colon by CT scan lower abdominal pain Discussion/Plan: I have discussed the above with the patient. I have offered the patient the procedure of colonoscopy, possible biopsies for evaluation. I have explained the procedure to the patient. I have counseled the patient as to the risks of the procedure, including but not limited to: infection, bleeding, injury to any blood vessels/nerves, scar tissue, injury to any intraabdominal organs such as the liver/spleen, perforation of the GI tract, inability to complete the procedure, etc. the patient understands. She wishes to proceed. I have answered all questions to the patients satisfaction and the patient has no further questions. Plan for two dose prepping for colonoscopy, scheduled for 14:30 tomorrow
--- NOTE | 2018-06-21 12:24 | CON.PCM_ITS ---
- Consult Date of Consult: 06/21/18 - Reason for Consult Chief Complaint: bloody stools, abdominal pain History of Present Illness: 62 y/o WF presents with Denies inflammatory bowel disease in the family such as ulcerative colitis or Crohn's. Denies colon cancer in the family. Complaint of crampy lower abdominal pain for the past few days. WBC initially upon admission 11.5K, today 6K, still with slight left shift of differential CT scan in ED - thick walled descending colon to rectum, calcifications of aorta Has not been feeling right, just feeling weak and lethargic. denies fevers. Past Medical History: history of cerebral aneurysm rupture depression disorder - has been seen by psychiatry CAD Hypertension rheumatoid arthritis/lupus seizure disorder Past Surgical History: Tracheostomy Craniotomy for brain aneurysm rupture Intracranial cerebral coils placed for aneurysms Csection cholecystectomy PEG Medications: Venlafaxine XR [Effexor Xr] 150 mg PO DAILY amlodipine 5 mg tablet 5 mg PO DAILY #90 tab lisinopril 5 mg tablet 5 mg PO DAILY #90 tab metoprolol tartrate 25 mg tablet 25 mg PO BID #120 tab simvastatin 40 mg tablet 40 mg PO QHS #90 tab clonazepam 0.5 mg tablet 0.5 mg PO .daily PRN #30 tab omeprazole 40 mg capsule,delayed 40 mg PO QDAY #90 cap release levetiracetam 500 mg tablet 500 mg PO BID #60 tab Folic Acid [Folic Acid] 1 tab PO DAILY 06/20/18 Levothyroxine [Synthroid] 200 mcg PO DAILY@0600 Methotrexate [Methotrexate] 6 tab PO QWEEK Prednisone [Prednisone] 10 mg PO DAILY Allergies: aspirin, nicotine Social history: TOB use yes Lives alone Review of Systems: General - had weight loss due to hospitalization for brain aneurysm rupture (200# - 137#) Cardiovascular states that she had a small SD in the past 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, 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, corporate staff accountant TOB use Gastrointestinal as per HPI, denies blood in stools, had colonoscopy 5-6 years ago Neurological history of cerebral aneurysm rupture Genitourinary denies burning with urination, denies blood in urine Hematological denies spontaneous/prolonged bleeding Skin denies open non healing wounds Musculoskeletal has some back/joint pain Endocrine denies diabetes Psychological has stress in life - recently moved to [place] in past year from [place], history of depression, states that stress caused her to have two mini strokes and SD Physical examination: Vital signs Temp 98.4F RR 18 BP 108/69 HR 68 General WD/WN WF in no apparent distress, alert and oriented, not septic appearing Head Normocephalic. Eyes: EOM intact with sclera clear and no icterus noted. Mouth: clear - upper dentures, poor lower dentition Neck is supple with no jugular venous distention noted. Trachea is midline. No carotid bruits noted. Lungs normal breath sounds in all lung landry. No rales/rhonchi/wheezing noted. No labored breathing noted, such as retractions. No cough heard. Heart normal S1 and S2 auscultated. No rubs/clicks/murmurs noted. Abdomen soft and benign. Normal bowel sounds Extremities no calf tenderness noted. No pitting edema noted. Genitourinary/Rectal deferred Skin normal skin integrity. Neurological non focal. Psychological normal affect, patient is calm and appropriate Impression: abnormal colon by CT scan lower abdominal pain Discussion/Plan: I have discussed the above with the patient. I have offered the patient the procedure of colonoscopy, possible biopsies for evaluation. I have explained the procedure to the patient. I have counseled the patient as to the risks of the procedure, including but not limited to: infection, bleeding, injury to any blood vessels/nerves, scar tissue, injury to any intraabdominal organs such as the liver/spleen, perforation of the GI tract, inability to complete the procedure, etc. the patient understands. She wishes to proceed. I have answered all questions to the patient?s satisfaction and the patient has no further questions. Plan for two dose prepping for colonoscopy, scheduled for 14:30 tomorrow
[2018-06-21] MEDS: Electrolyte Solution/Peg's 4000 ML 2000 ML PO ×2 (15:15→20:25)
[2018-06-21] MEDS: Atorvastatin Calcium 20 MG Tablet PO (21:19)
[2018-06-21] MEDS: MELATONIN 10 MG TABLET PO (22:53)
[2018-06-22] VITALS (22 sets, daily range): BP systolic 108–171; BP diastolic 70–105; PULSE 56–74; RESP 16–18; TEMP 36.7–37.3; O2SAT 94–98
[2018-06-22] MEDS: Morphine 2 MG/ML Syringe IV (02:30)
[2018-06-22] MEDS: 0.9% Normal Saline 1,000 ML 100 ML IV ×2 (05:45→17:26)
[2018-06-22] MEDS: Levothyroxine 100 MCG Tablet 200 MCG PO (06:06)
[2018-06-22 06:41] LABS: Absolute Lymphocyte Count 0.58 X10^3/ul (0.83-4.51); Absolute Neutrophil Count 3.6 X10^3/uL (2.0-7.7); Basophil# 0.02 X10^3/uL; Basophil% 0.4 % (0-1); Eosinophil# 0.04 X10^3/uL; Eosinophils% 0.9 % (0-5); Hematocrit 32.7 % (37-47); Lymphocyte # 0.58 X10^3/ul (4.0); Lymphocyte % 12.3 % (19-41); Mean Corp Hgb Conc 33.6 g/gl (32-36); Mean Corpuscular Hgb 34.5 pg (27.0-32.0); Mean Corpuscular Volume 102.5 fL (81-99); Mean Platelet Vol. 8.2 fl (6.2-12.0); Monocyte# 0.41 X10^3/uL; Monocyte% 8.7 % (0-10); Neutrophil # 3.64 X10^3/uL (2.7-7.7); Neutrophil % 77.5 % (47-70); Platelet Count 139 K/mm3 (150-450); RBC Distribution Width CV 13.7 % (11.6-14.6); Red Blood Count 3.19 M/mm3 (4.2-5.4); White Blood Count 4.7 K/mm3 (4.4-11.0)
[2018-06-22 06:57] LABS: Anion Gap 10 (5-15); BUN 9 mg/dL (7-18); BUN/Creat Ratio 17.1 RATIO (10-20); Calcium,Total 7.7 mg/dL (8.5-10.1); Chloride 112 mmol/L (98-107); Creatinine, Serum 0.53 mg/dL (0.55-1.02); EST Glomerular Filtration Rate 126 mL/min (>60); Est Glom Filt Rate - Afr Amer 152 mL/min (>60); Estimated Creatinine Clearance 97.47 ml/min; Glucose 78 mg/dL (74-106); Potassium 3.4 mmol/L (3.5-5.1); Sodium Level 142 mmol/L (136-145)
[2018-06-22 06:58] LABS: Magnesium 1.6 mg/dL (1.6-2.6)
[2018-06-22 07:12] LABS: Differential Indicated SCAN CRITERIA MET; POSITIVE COUNT NO; POSITIVE DIFFERENTIAL YES; POSITIVE MORPHOLOGY NO
[2018-06-22] MEDS: levETIRAcetam 500 MG Tablet PO ×2 (09:01→21:47)
[2018-06-22] MEDS: Metoprolol Tartrate 25 MG Tablet PO ×2 (09:01→21:47)
[2018-06-22] MEDS: Folic Acid 1 MG Tablet PO (09:01)
[2018-06-22] MEDS: Venlafaxine XR 150 MG Capsule PO (09:01)
[2018-06-22] MEDS: predniSONE 10 MG Tablet PO (09:01)
[2018-06-22] MEDS: amLODIPine 5 MG Tablet PO (09:02)
[2018-06-22] MEDS: Lisinopril 5 MG Tablet PO (09:02)
--- NOTE | 2018-06-22 09:19 | PCM.PN.HOSP ---
Subjective: Patient is a 62-year-old lady who presented with abdominal pain associated with nausea and vomiting found to have colitis on CAT scan Objective: GENERAL: cooperative HEENT: Clear conjunctiva, NECK; supple, normal thyroid, . CHEST: Clear to auscultation bilaterally, HEART: Regular S1 S2, no audible murmurs ABDOMEN: soft, non-tender, normoactive bowel sounds, RECTAL: deferred EXTREMITIES: No edema, no clubbing, no cyanosis. ROADMASTER: Awake; no lateralizing signs. SKIN: No Rash Vitals/I&O's: Vital Signs Temp Pulse Resp BP Pulse Ox 98.6 F 65 16 127/86 H 94 06/22/18 09:00 06/22/18 09:01 06/22/18 09:00 06/22/18 09:00 06/22/18 09:00 Oxygen Delivery Method Room Air Weight: 72 kg Body Mass Index (BMI) 27.2 Intake and Output for Last 24 Hours 06/20/18 06/21/18 06/22/18 23:59 23:59 23:59 Intake Total 120 / 120 4261 / 4261 5202 / 5202 Balance 120 / 120 4261 / 4261 5202 / 5202 Laboratory Results 06/22/18 05:40: WBC 4.7, RBC 3.19 L, Hgb 11.0 L, Hct 32.7 L, MCV 102.5 H, MCH 34.5 H, MCHC 33.6, RDW 13.7, RDW Differential 51.0 H, Plt Count 139 L, MPV 8.2, Immature Gran % (Auto) 0.200, Neut % (Auto) 77.5 H, Lymph % (Auto) 12.3 L, [place] % (Auto) 8.7, Eos % (Auto) 0.9, Baso % (Auto) 0.4, Absolute Neuts (auto) 3.6, Absolute Lymphs (auto) 0.58 L, Total Counted Not Reportable 06/22/18 05:40: Sodium 142, Potassium 3.4 L, Chloride 112 H, Carbon Dioxide 20.0 L, Anion Gap 10, BUN 9, Creatinine 0.53 L, Estim Creat Clear Calc 97.47, Est GFR (MDRD) Af Amer 152, Est GFR (MDRD) Non-Af 126, BUN/Creatinine Ratio 17.1, Glucose 78, Calcium 7.7 L 06/22/18 05:40: Magnesium 1.6 Current Medications Amlodipine Besylate (Norvasc) 5 mg PO DAILY [facility] Last Admin: 06/22/18 09:02 Dose: 5 mg Atorvastatin Calcium (Lipitor) 20 mg PO QHS [facility] Last Admin: 06/21/18 21:19 Dose: 20 mg Clonazepam (Klonopin) 0.5 mg PO DAILY PRN PRN Reason: PANIC ATTACKS Last Admin: 06/21/18 10:44 Dose: 0.5 mg Folic Acid (Folic Acid) 1 mg PO DAILYCM [facility] Last Admin: 06/22/18 09:01 Dose: 1 mg Sodium Chloride () 1,000 mls @ 100 mls/hr IV .Q10H [facility] Last Admin: 06/22/18 05:45 Dose: 100 mls/hr Ciprofloxacin (Cipro) 400 mg in 200 mls @ 200 mls/hr IV Q12 [facility] Last Admin: 06/21/18 22:53 Dose: 200 mls/hr Famotidine 20 mg/ Sodium (Chloride) 10 mls @ 300 mls/hr IV DAILY [facility] Last Admin: 06/22/18 08:54 Dose: 300 mls/hr Metronidazole (Flagyl) 500 mg in 100 mls @ 100 mls/hr IV Q8 [facility] Last Admin: 06/22/18 06:06 Dose: 100 mls/hr Levetiracetam (Keppra Tablet) 500 mg PO BID [facility] Last Admin: 06/22/18 09:01 Dose: 500 mg Levothyroxine Sodium (Synthroid) 200 mcg PO DAILY@0600 [facility] Last Admin: 06/22/18 06:06 Dose: 200 mcg Lisinopril (Zestril) 5 mg PO DAILY [facility] Last Admin: 06/22/18 09:02 Dose: 5 mg Melatonin (Melatonin) 10 mg PO QHS PRN PRN Reason: For sleep Last Admin: 06/21/18 22:53 Dose: 10 mg Metoprolol Tartrate (Lopressor (Beta Oni)) 25 mg PO BID [facility] Last Admin: 06/22/18 09:01 Dose: 25 mg Morphine Sulfate () 1 - 2 mg IV Q4H PRN PRN PRN Reason: SEVERE PAIN (6-10/10) Last Admin: 06/22/18 02:30 Dose: 2 mg Ondansetron HCl (Zofran) 4 mg IV Q6H PRN PRN PRN Reason: NAUSEA/VOMITING [facility] Admin: 06/22/18 09:01 Dose: 10 mg Sodium Chloride () 5 - 30 ml IV UD PRN PRN Reason: SALINE FLUSH Venlafaxine HCl (Effexor Xr) 150 mg PO DAILY [facility] Last Admin: 06/22/18 09:01 Dose: 150 mg Medical Necessity - Tobacco Use Smoking Status: Current every day smoker Assessment/Plan Patient is a 62-year-old lady who presented with abdominal pain associated with nausea and vomiting found to have colitis on CAT scan 1. Acute colitis secondary to infectious colitis patient has been managed with ciprofloxacin and Flagyl with some improvement consultation was placed to general surgery patient seen by Dr. Chantel Ramirez plans for patient undergo endoscopic evaluation on 06/22/2018 2. Lower GI bleed: Scheduled to undergo colonoscopy. Of note patient has underlying hemorrhoids as well 3. Acute kidney injury secondary to dehydration and poor oral intake resolved 4. Seizure disorder controlled with Keppra 5. Hypertension-blood pressure controlled, home medications continued with dose adjustment as needed 6. Rheumatoid arthritis symptoms controlled on prednisone and methotrexate 7. History of intracranial hemorrhage secondary to brain aneurysm status post craniectomy stable 8. Dyslipidemia-patient is on statin therapy, continued at home dose 9. Hypothyroidism; patient is on levothyroxine home dose continued 10. DVT prophylaxis: SCDs. Code Visit Inpatient E&M: 13420 Subs Hosp L2
[2018-06-22] MEDS: Ciprofloxacin 400 MG/200 ML BAG 200 MG IV ×2 (11:04→23:32)
[2018-06-22] MEDS: 0.9% NaCl Peripheral Flush Adult/Peds IV (11:04)
--- NOTE | 2018-06-22 12:11 | CASEMGMT ---
Face to Face with patient for initial transition planning/care coordination assessment. RN BARTOLOME introduced self and role at [facility], pt voices understanding and consents to assessment at this time. Pt is lying in bed in no distress at this time. Pt is A/O x4 at this time and answers all questions appropriately at this time. Care providers, pharmacy, and demographics verified. See attached link. Pt voices no further concerns/needs at this time. Advised pt to ask for CM if any further questions/concerns/needs arise, voices understanding. Referral to Adrianna GARCIA, voices understanding. PLAN: [place]
--- NOTE | 2018-06-22 14:30 | COLBX_PTH ---
PATIENT: GIANCARLO RAGLAND LOC: PCU U#:[id number] AGE/SX: 62/F ROOM: [facility] RE06/20/[address]: Dr. Frank Staley MD : 1955 BED: 1 DIS: 06/23/2018 SPEC #: [id number] RECD: 06/22/18 15:30 STATUS: YESSICA REQ #: [id number] NEREYDA: 06/22/18 14:[address]: Chantel Dove DEPT: SURGICAL PATHOLOGY RECD BY: Cornelius Jimenez ENTERED: 06/23/18 11:58 SP TYPE: COLON BX OTHR DR: MD Dr. Dustin Alicia MD Dr. Kathleen Fearon, DO Dr. Linda Wang, MD Tissues: Sigmoid colon biopsy Procedures: Surgery Specimen Level IV Comments: @ Ordering doctor for SUIV edited from to @ by CUCA at 06/23/18 153 @ Submitting doctor edited from to @ by CUCA at 06/23/181531 HEADER OPERATION: Colonoscopy (MAC) PRE-OP DIAGNOSIS: Abdomen pain and blood in stool TISSUE SUBMITTED: Sigmoid biopsy MICROSCOPIC DIAGNOSIS Sigmoid colon, biopsy: Recent mucosal hemorrhage. No evidence of colitis. AM:shandra 06/24/18 MICROSCOPIC DESCRIPTION Slides are reviewed. GROSS DESCRIPTION Received in fixative is one container labeled with the patient's name and designated sigmoid biopsy. The specimen consists of multiple irregular fragments of light smith soft tissue that in aggregate measure 0.6 x 0.3 x 0.1 cm. The specimen is totally submitted in one cassette. / AM:shandra 06/23/18 TC:5 CPT: 49651
[2018-06-22] MEDS: clonazePAM 0.5 MG Tablet PO (20:16)
[2018-06-22] MEDS: Atorvastatin Calcium 20 MG Tablet PO (21:50)
[2018-06-23] VITALS (9 sets, daily range): BP systolic 107–127; BP diastolic 67–93; PULSE 56–72; RESP 16–18; TEMP 36.8–37.3; O2SAT 94–95
[2018-06-23] MEDS: MELATONIN 10 MG TABLET PO (01:11)
[2018-06-23] MEDS: 0.9% Normal Saline 1,000 ML 100 ML IV (05:33)
[2018-06-23] MEDS: Levothyroxine 100 MCG Tablet 200 MCG PO (05:37)
--- NOTE | 2018-06-23 07:18 | OP.PCM_ITS ---
Report of Operation Date of Procedure: 06/22/18 Pre-Operative Diagnosis: blood in stool, diarrhea, lower abdominal pain, abnormal CT scan of colon Post-Operative Diagnosis: segmental patchy colitis of sigmoid colon Surgery/Procedure Performed:: colonoscopy with biopsies Description of Surgical Findings:: segmental patchy area of sigmoid colon with mucosal erythema/edema Type of Anesthesia:: MAC Anesthesiologist: Kike To Specimen's removed: mucosal biopsies of sigmoid colon Estimated Blood Loss (mL): minimal Fluids Replaced: see anesthesia note Description of Procedure: After informed consent was given, the patient was brought to the endoscopy suite and placed in the supine position. Appropriate time out protocol was followed. Appropriate cardiac, blood pressure, and pulse oximetry monitoring was placed. After stable vital signs were noted, the patient was given intravenous conscious sedation by the anesthesia provider. The patient was then placed in the left lateral decubitis position. The colonoscope was lubricated and carefully inserted into the patient?s anus. It was then advanced into the rectum, then into the sigmoid colon, then into the left descending colon, past the splenic flexure, into the transverse colon, past the hepatic flexure, then down into the right descending colon and into the cecum. The cecum was identified by: transillumination, confluence of the tenae coli, identification of the ileocecal valve and appendiceal orifice, and external pressure with indentation. At this point, the colonoscope was slowly retracted back and the entire colonic mucosa was examined. Segmental patchy colitis noted of sigmoid colon - the costa appeared edematous and with erythema. There was no evidence of extrinsic compression. The colon cleansing preparation was adequate to identify for any masses greater than 1 cm. No intraluminal obstructing lesions, no strictures, and no ulcers were noted. Retroflex view in the rectum revealed no lesions in the rectal vault except for hemorrhoids. The colonoscope was removed intact. Patient tolerated procedure well. - Complications none noted
[2018-06-23] MEDS: Folic Acid 1 MG Tablet PO (08:47)
[2018-06-23] MEDS: Venlafaxine XR 150 MG Capsule PO (08:47)
[2018-06-23] MEDS: predniSONE 10 MG Tablet PO (08:47)
[2018-06-23] MEDS: Lisinopril 5 MG Tablet PO (08:48)
[2018-06-23] MEDS: Metoprolol Tartrate 25 MG Tablet PO (08:48)
[2018-06-23] MEDS: amLODIPine 5 MG Tablet PO (08:48)
[2018-06-23] MEDS: levETIRAcetam 500 MG Tablet PO (08:48)
[2018-06-23] MEDS: Ciprofloxacin 400 MG/200 ML BAG 200 MG IV (08:49)
--- NOTE | 2018-06-23 10:25 | PCM.DC ---
You will use the following diet at home:: No restrictions Your food should be the consistency of: Regular Discharge Activity: Return to Normal Activity Allergies/Adverse Reactions: Allergies aspirin [ASA] Adverse Reaction (Verified 06/20/18 10:01) Upset Stomach nicotine Adverse Reaction (Verified 06/20/18 10:01) Unknown Medications to take at Discharge Venlafaxine XR [Effexor Xr] 150 mg PO DAILY 08/29/17 amlodipine 5 mg tablet 5 mg PO DAILY #90 tab 10/28/17 lisinopril 5 mg tablet 5 mg PO DAILY #90 tab 10/28/17 metoprolol tartrate 25 mg tablet 25 mg PO BID #120 tab 10/28/17 simvastatin 40 mg tablet 40 mg PO QHS #90 tab 10/28/17 clonazepam 0.5 mg tablet 0.5 mg PO .daily PRN #30 tab 01/02/18 omeprazole 40 mg capsule,delayed release 40 mg PO QDAY #90 cap 03/03/18 levetiracetam 500 mg tablet 500 mg PO BID #60 tab 05/29/18 Folic Acid 1 tab PO DAILY 06/20/18 Levothyroxine [Synthroid] 200 mcg PO DAILY@0600 06/20/18 Methotrexate 6 tab PO QWEEK 06/20/18 Prednisone 10 mg PO DAILY 06/20/18 Ciprofloxacin [Cipro] 500 mg PO BID #10 tab 06/23/18 Metronidazole [Flagyl] 500 mg PO TID #15 tab 06/23/18 The following prescriptions were given: Ciprofloxacin [Cipro] 500 mg PO BID #10 tab Metronidazole [Flagyl] 500 mg PO TID #15 tab Primary Care Physician: Allison More DO [Primary Care Provider] - Please follow up with your Primary Care Physician in: in 3-5 days Test Results: Test results from this visit will be discussed in further detail at your follow-up appointment, if applicable. Please Follow Up With: Allison More DO Please Follow Up With: Chaya Wilkins PA-C Proposed Discharge Date: 06/23/18
--- NOTE | 2018-06-23 11:08 | CASEMGMT ---
RADHA met with patient, introduced self and role at [facility]. SW mentioned advance directives to her. She then went on to tell SW her daughter is her POA. She said when she had her aneurism her daughter is the one that made decisions for her. She said that she has the paperwork somewhere. She then went on to tell SW most of her life story. She jumps from story to story. She mentioned her aneurism numerous times and how it effects her ability to understand and remember things. She said she came here from [place]. Her brother brought her here as her sons were addicted to opiates. She doesn't really know anyone here. Her brother is busy with work and his . She went to her [employer], but she is not like other people her age. She feels and acts younger. She listens to music her kids listen to. She did get a phone call from a lady from the [employer] checking to see how she is doing. Patient goes to [facility] where she sees a counselor once a month and the Psychiatrist. She tried [facility], but did not like it because she was not like the other people in the group. She said her counselor is working on getting her a case management rn, but there is a shortage of them right now. RADHA discussed making a [employer] referral. RADHA told her a nurse or SW would come out and do an assessment with her. RADHA told her she would need help with some type of personal care. She said she would like a referral to be made. RADHA told her someone from [facility] would be calling her. She thanked RADHA for the help and for listening. RADHA faxed referral to [employer] at [facility]. Plan: d/c home with referral to [employer]. Angie FULLER
--- NOTE | 2018-06-23 12:25 | PCM.DC.SUM ---
Discharge Date and Diagnosis - Problem List Patient Problems: Active and Suspected Problems (Last Updated 10/29/17 @ 15:01 by Zoraida Katz) Acute hemorrhagic colitis (Acute) Date of Admission: 06/20/18 Date of Discharge: 06/23/18 - Primary Discharge Diagnosis Active and Suspected Problems (Last Updated 10/29/17 @ 15:01 by Zoraida Katz) Acute hemorrhagic colitis (Acute) - Secondary Discharge Diagnosis Chronic Problems (Last Updated 10/29/17 @ 15:01 by Zoraida Katz) Rheumatoid arthritis (Chronic) History of intracranial hemorrhage (Chronic) Hypothyroidism (Chronic) Seizure disorder (Chronic) Non-STEMI (non-ST elevated myocardial infarction) (Chronic) Normal coronaries per [facility] 09/29/2017 @ [facility] per Dr. Dietrich History of left heart catheterization (LHC) (Chronic 10/08/17) History of craniotomy (Chronic) HLD (hyperlipidemia) (Chronic) Depression with anxiety (Chronic) HTN (hypertension) (Chronic) Hospital Course and Treatment Imaging Results: Clinical Impression(s) from Imaging Studies Abdomen/Pelvis CT 06/20/18 10:17 IMPRESSION: Findings are most consistent colitis of the descending colon from the splenic flexure to the rectum. Given the pattern consider pseudomembranous colitis/C. difficile. Status post cholecystectomy. Benign-appearing left renal cyst. Atherosclerotic disease of the aorta Degenerative change of the thoracolumbar spine. N.B. : The above information has been verbally conveyed by Elaine Najera MD to Dr Dorsey , Covering Physician, on 06/20/2018 12:25:48 (ET). Electronically Signed: Elaine Najera MD at 12:17 EDT Tel , Service support , Procedures: Colonoscopy - Date of Procedure: 06/22/18 Pre-Operative Diagnosis: blood in stool, diarrhea, lower abdominal pain, abnormal CT scan of colon Post-Operative Diagnosis: segmental patchy colitis of sigmoid colon Surgery/Procedure Performed:: colonoscopy with biopsies Description of Surgical Findings:: segmental patchy area of sigmoid colon with mucosal erythema/edema Summary of Care Provided: Patient is a 62-year-old lady who presented with abdominal pain associated with nausea and vomiting found to have colitis on CAT scan 1. Acute colitis secondary to infectious colitis patient has been managed with ciprofloxacin and Flagyl with some improvement consultation was placed to general surgery patient seen by Dr. Chantel Dove who did perform colonoscopy on 06/22/2018 as above. Patient was discharged home on Flagyl and ciprofloxacin for 5 additional days 2. Lower GI bleed: Scheduled to undergo colonoscopy. Of note patient has underlying hemorrhoids as well 3. Acute kidney injury secondary to dehydration and poor oral intake resolved 4. Seizure disorder controlled with Keppra 5. Hypertension-blood pressure controlled, home medications continued with dose adjustment as needed 6. Rheumatoid arthritis symptoms controlled on prednisone and methotrexate 7. History of intracranial hemorrhage secondary to brain aneurysm status post craniectomy stable 8. Dyslipidemia-patient is on statin therapy, continued at home dose 9. Hypothyroidism; patient is on levothyroxine home dose continued 10. DVT prophylaxis: SCDs. Discharge Diet: No Restrictions Discharge Activity: Return to Normal Activity Home Medications: Medications to take at Discharge Venlafaxine XR [Effexor Xr] 150 mg PO DAILY 08/29/17 amlodipine 5 mg tablet 5 mg PO DAILY #90 tab 10/28/17 lisinopril 5 mg tablet 5 mg PO DAILY #90 tab 10/28/17 metoprolol tartrate 25 mg tablet 25 mg PO BID #120 tab 10/28/17 simvastatin 40 mg tablet 40 mg PO QHS #90 tab 10/28/17 clonazepam 0.5 mg tablet 0.5 mg PO .daily PRN #30 tab 01/02/18 omeprazole 40 mg capsule,delayed release 40 mg PO QDAY #90 cap 03/03/18 levetiracetam 500 mg tablet 500 mg PO BID #60 tab 05/29/18 Folic Acid 1 tab PO DAILY 06/20/18 Levothyroxine [Synthroid] 200 mcg PO DAILY@0600 06/20/18 Methotrexate 6 tab PO QWEEK 06/20/18 Prednisone 10 mg PO DAILY 06/20/18 Ciprofloxacin [Cipro] 500 mg PO BID #10 tab 06/23/18 Metronidazole [Flagyl] 500 mg PO TID #15 tab 06/23/18 Following Prescrptions Were Given to Patient: Ciprofloxacin [Cipro] 500 mg PO BID #10 tab Metronidazole [Flagyl] 500 mg PO TID #15 tab Primary Care Physician: Allison More DO [Primary Care Provider] - Please follow up with your Primary Care Physician in: in 3-5 days Please Follow Up With: Allison More DO Please Follow Up With: Chaya Wilkins PA-C Disposition: Home Minutes spent on discharge:: 40 Patient Condition:: Stable Medical Necessity - Tobacco Use Smoking Status: Current every day smoker Meaningful Use Info Meaningful Use Diagnoses (Choose all that apply): None applicable Code Visit Inpatient E&M: 39402 Disch Hosp
--- NOTE | 2018-06-26 11:24 | CASEMGMT ---
Addendum entered by Bess Wood 06/26/18 11:37: Pt states appt is actually set up with passport not the waiver program. Antonio CUMMINGS CM Original Note: ZOILA MANCUSO Discharge F/U Phone Call LACE: 13 Strata: 4 Discharge date: 06/23/18 Call date: 06/26/18 Call time: [id number] Duration: 10 minutes Admission dx: Acute colitis, REAGAN Pt states has been 'doing good' since discharge. Pt states no questions regarding discharge instructions or medications at this time. Pt states finally had 'normal' bm today. Pt states has f/u appt scheduled with Dr. More and states plans on keeping appt. Pt also states that she has an appt for an assessment with the waiver program on 07/07/18 for possible resources. Pt states no suggestions for [facility] at this time. Pt voices no further questions/concerns/needs at this time. Antonio CUMMINGS CM
== END 2018-06-23 11:35 | disposition home or self-care (01) | DRG 392 ==
LOC: ED 13:53 → PCU 14:39
PROVIDERS: Internal Medicine; Surgery; Admitting Provider Hospitalist; Emergency Provider Emergency Medicine; Family Provider Internal Medicine; PCP Internal Medicine; Visit Provider Internal Medicine
PROC: 0DJD8ZZ Inspection of Lower Intestinal Tract, Via Natural or Artificial Opening Endoscopic (ICD-10-PCS; CPT 45378; principal; 2018-06-22 14:25)
DX: A09 Infectious gastroenteritis and colitis, unspecified (principal); N17.9 Acute kidney failure, unspecified; I10 Essential (primary) hypertension; G40.909 Epilepsy, unspecified, not intractable, without status epilepticus; M06.9 Rheumatoid arthritis, unspecified; Z79.52 Long term (current) use of systemic steroids; E78.5 Hyperlipidemia, unspecified; E03.9 Hypothyroidism, unspecified; F17.200 Nicotine dependence, unspecified, uncomplicated; F41.8 Other specified anxiety disorders; I25.2 Old myocardial infarction; E86.0 Dehydration; K64.9 Unspecified hemorrhoids
CPT/HCPCS: 36415; 74177; 80048; 80076; 83605; 83630; 83690; 83735; 85025; 85610; 85730; 87177; 87209; 87493; 87506; 88305; 93005; 99284; 99406; J7030; J7040; J7050; Q9967; A4216; J0744; J3490

== ENCOUNTER 2018-08-06 12:11 | Emergency (ER) | payer MEDICARE, MEDICAID, SELFPAY ==
[2018-08-06 12:11] VITALS: BP 108/74; PULSE 64; RESP 18; TEMP 36.4; O2SAT 93; BMI 28.3
--- NOTE | 2018-08-06 12:16 | RAD_ITS ---
STUDY: X-RAY - LEFT KNEE REASON FOR EXAM: Female, 62 years old. Left knee pain x4 days. TECHNIQUE: 4 view(s) of the knee. COMPARISON: None. FINDINGS: Alignment appears anatomic without acute fracture lucency or cortical step-off. There is no tibial plateau split or depression. There is no radiopaque joint loose body. There is mild lateral compartment osteoarthritis manifested by joint space loss, subchondral sclerosis and marginal osteophyte formation. Peaking of the tibial spines within the intercondylar notch probably also represents a manifestation of osteoarthritis. There is very minimal patellofemoral and very minimal medial compartment osteoarthritis. The soft tissue structures are unremarkable. RAD/Knee 4 or More Views IMPRESSION: No plain film evident acute osseous abnormality. Tricompartmental osteoarthritis as characterized above. Recommendation: If internal derangement is clinically suspected, recommend evaluation with MRI. Electronically Signed: Ziyad Lockwood MD at 13:21 EDT , Service support ,
--- NOTE | 2018-08-06 14:20 | ED.VISSUMM ---
- ER Visit Summary Date of Service: 08/06/18 Chief Complaint: Left knee pain History of Present Illness: The patient is a 62 F who states that 3 days ago she went to get out of bed her left knee buckled. Since that time she had pain over the lateral aspect of the joint line. No significant swelling. History of rheumatoid arthritis. Physical Examination: Afebrile vital signs are stable Patient has tenderness along the lateral aspect of the joint line. Ligaments appear stable. No joint effusion. No erythema. Test Results: Knee films were negative for fracture. Noted significant osteoarthritic changes Emergency Department Course and Treatment: Patient will continue to wear her brace rest ice anti-inflammatories and follow-up with her doctor 10-14 days if not improved. We talked about the possibility of meniscal injury. Impression: 1. Left knee pain This note was generated with [employer] dictation software. It may contain incorrect words, spelling, and punctuation that were not noted in review of the chart prior to signing ED Disposition - Plan for ED Patient: Disposition: Home or Assisted Living Chief Complaint: Lower Extremity Injury Instructions: ED Meniscal Injury Knee Poss Referrals: Allison More DO [Primary Care Provider] - 10-14 Days if not better
== END 2018-08-06 14:50 | disposition home or self-care (01) ==
PROVIDERS: Emergency Provider Emergency Medicine; Family Provider Internal Medicine; PCP Internal Medicine
DX: M25.562 Pain in left knee (principal); M06.9 Rheumatoid arthritis, unspecified; I10 Essential (primary) hypertension; E78.00 Pure hypercholesterolemia, unspecified; F41.9 Anxiety disorder, unspecified; Z79.899 Other long term (current) drug therapy; Z87.891 Personal history of nicotine dependence
CPT/HCPCS: 73564; 99282

== ENCOUNTER → 2018-08-18 13:00 | Outpatient (CLI) | payer MEDICARE, MEDICAID, SELFPAY ==
--- NOTE | 2018-08-18 13:04 | CT_ITS ---
STUDY: CTA OF THE BRAIN REASON FOR EXAM: Female, 62 years old. Aneurysm. RADIATION DOSAGE (If Supplied By Facility): CTDIvol = ( 30.82 ) mGy, DLP = ( 1504.33 ) mGycm TECHNIQUE: CT angiography was performed with a multi-detector CT scanner. Data acquisition was obtained from the skull base through the vertex following intravenous administration of 100 ml of Isovue-370. MIP images were reconstructed from the axial data set. Post-processing of the angiographic images was performed, with multiplanar reformation and 3D reconstruction. Individualized dose optimization techniques were used for this CT. COMPARISON: CT neck angiogram same date. 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 Postcontrast imaging: Metallic coiling associated with the right vertebral artery. The left vertebral artery is dominant, widely patent. The basilar artery and basilar tip, and posterior cerebral arteries are normal. Aneurysm clip associated with the right M2 distribution. No residual aneurysm is apparent. Aneurysm clip associated with the margin of the left anterior cerebral artery, with no visible residual aneurysm visible. Aneurysm clip associated with the left middle cerebral artery M1 segment, with no residual aneurysm visible. Coiling associated with the anterior aspect of the left MCA M2 distribution, with no residual aneurysm present. Arborization of the transcranial internal carotid arteries, ophthalmic arteries, supraclinoid internal carotid arteries, anterior and posterior to indicating arteries, anterior and middle cerebral arteries appears to be widely patent and normal, no visible recurrent or new aneurysm. Normal enhancement and arborization of the dural venous sinuses and major venous tributaries. CT/CTA Head W/WO Contrast IMPRESSION: Postsurgical changes as detailed above. Normal arborization of the intracranial vasculature at this time. No visible acute/new/recurrent aneurysms. Electronically Signed: Derek Erin, at 14:37 EDT Tel , Service support ,
--- NOTE | 2018-08-18 13:04 | CT_ITS ---
STUDY: CT ANGIOGRAM NECK WITH CONTRAST REASON FOR EXAM: Female, 62 years old. Aneurysms. Follow-up. RADIATION DOSAGE (If Supplied By Facility): DLP = ( 1504 ) mGycm. Individualized dose optimization techniques were used for this CT.? TECHNIQUE: Thin slice helical CT endocrine was performed after the administration of Isovue-370, 100 mL, with curved planar, straight and curved planar, coronal and sagittal MIP and 3-D volume rendered reformatted images saved to the PACS archive. COMPARISON: CTA head same date. FINDINGS: Prominent features of both centrilobular and paraseptal emphysema at the lung apices. Apical thoracic cage intact with mild kyphosis and osteopenia. There is mild to moderate multilevel cervical degenerative disc disease with disc narrowing and uncovertebral joint hypertrophy contributing to foraminal narrowing at C5-C6 and C6-C7. Mild to moderate foraminal stenosis at these levels. Skull base osseous structures intact. Sinuses within the field of view are clear. Supraclavicular soft tissues exhibit no acute process. Minimal thyroid tissue is present. Cervical soft tissues exhibit no acute process. Pharyngeal and laryngeal soft tissues appear normal. Aortic arch up to 3.4 cm, ectatic without aneurysm. Mild arch atherosclerosis. Widely patent three-vessel cervical arch branching. Normal bilateral subclavian arteries. Minimal plaque of the right carotid bulb and proximal ICA without stenosis or dissection. Minimal plaque of the left carotid bulb and proximal ICA without stenosis or dissection. Dominant left vertebral artery from the left subclavian artery, enhancing arborizing normally without atherosclerosis, stenosis or dissection. Diminutive right vertebral artery arising from the subclavian artery without apparent stenosis or dissection. CT/CTA Neck W/WO Contrast IMPRESSION: Minimal atherosclerosis otherwise normal cervical vasculature. Electronically Signed: Derek Khan, at 14:41 EDT Tel , Service support ,
[2018-08-18 13:40] LABS: CREATININE FINGERSTICK 1.3 mg/dL (0.55-1.02)
== END ==
PROVIDERS: Family Provider Internal Medicine; PCP Internal Medicine; Referring Provider Psychiatry & Neurology Neurology; Visit Provider Psychiatry & Neurology Neurology
DX: I67.1 Cerebral aneurysm, nonruptured (principal)
CPT/HCPCS: 70496; 70498; Q9967

== ENCOUNTER 2018-11-05 18:09 | Emergency (ER) | payer MEDICARE, SELFPAY ==
[2018-11-05] VITALS (7 sets, daily range): BP systolic 168–171; BP diastolic 97–118; PULSE 57–89; RESP 17–19; TEMP 36.4–37.2; O2SAT 96–97; BMI 27.4
[2018-11-05] MEDS: 0.9% Normal Saline 1,000 ML 1000 ML IV ×2 (18:33→19:33)
[2018-11-05] MEDS: Metoclopramide 10 MG/2 ML Vial IV (18:34)
[2018-11-05 19:15] LABS: Anion Gap 9 (5-15); BUN 13 mg/dL (7-18); BUN/Creat Ratio 19.3 RATIO (10-20); Calcium,Total 9.2 mg/dL (8.5-10.1); Chloride 102 mmol/L (98-107); Creatinine, Serum 0.67 mg/dL (0.55-1.02); EST Glomerular Filtration Rate 95 mL/min (>60); Est Glom Filt Rate - Afr Amer 115 mL/min (>60); Estimated Creatinine Clearance 77.11 ml/min; Glucose 109 mg/dL (74-106); Potassium 4.1 mmol/L (3.5-5.1); Sodium Level 135 mmol/L (136-145)
[2018-11-05] MEDS: proMETHazine 25 MG/ML Syringe 6.25 MG IV (19:31)
--- NOTE | 2018-11-05 21:11 | ED.VISSUMM ---
- ER Visit Summary Date of Service: 11/05/18 Chief Complaint: Nausea and vomiting x10 History of Present Illness: The patient is a 62 F who presents with nausea and vomiting. Onset this morning after arising from bed. She denied blood or coffee ground emesis. She denies black or maroon stool. Last bowel movement yesterday. She denies abdominal pain or distention. She denies fever, chills night sweats. She was coming of thirst, dry mouth and lightheadedness. She informed me that she is intolerant of Zofran because it makes her abdominal pain worse. She denies fever, chills night sweats she denies ocular, visual auditory symptoms. She denies paresthesia, anesthesia or muscle weakness Physical Examination: Patient in position. Vital signs noted. HEENT exam is marked for dry tongue and mucosa. Otherwise HEENT exam is unremarkable. Heart is regular without murmur, gallop or rub. S1 and S2 are normal. Lungs are clear to auscultation with good movement of air bilaterally. Abdomen is soft nontender bowel sounds are slightly increased. There is no tympany or percussion. Examination extremities is remarkable for discoloration consistent with Raynaud's. Neuro exam is nonfocal. Test Results: Basic metabolic panel reveals a sodium 135 and glucose of 109 which are unremarkable. BUN and creatinine are normal. Emergency Department Course and Treatment: Liter of normal saline, initially treated with Reglan. She is states she had no improvement. She subsequently given Phenergan. Of note she did drink some kia aime is not vomited during her 3-hour stay. Nurse informed me she wishes she can stay because she may not have a ride home. Treatment Plan: Prescription for antiemetic Disposition: Discharge to home Impression: 1. Nausea and vomiting 2. Mild dehydration 3. History of rheumatoid arthritis 5. History of lupus 5. History of Raynaud's This note was generated with [employer] dictation software. It may contain incorrect words, spelling, and punctuation that were not noted in review of the chart prior to signing ED Disposition - Plan for ED Patient: Disposition: Home or Assisted Living Chief Complaint: Nausea/Vomiting Instructions: ED Nausea Vomiting Prescriptions: proMETHazine suppository [Phenergan Suppository] 25 mg RECTAL Q6H PRN PRN #5 suppos. PRN Reason: Nausea/Vomiting Referrals: Allison More DO [Primary Care Provider] - Additional Instructions: Your prescription was electronically transmitted to [facility] pharmacy your designated pharmacy.
== END 2018-11-05 21:32 | disposition home or self-care (01) ==
PROVIDERS: Emergency Provider Emergency Medicine; Family Provider Internal Medicine; PCP Internal Medicine
DX: R11.2 Nausea with vomiting, unspecified (principal); E86.0 Dehydration; M06.9 Rheumatoid arthritis, unspecified; M32.9 Systemic lupus erythematosus, unspecified; I73.00 Raynaud's syndrome without gangrene; I10 Essential (primary) hypertension; E78.00 Pure hypercholesterolemia, unspecified; E03.9 Hypothyroidism, unspecified; F32.9 Major depressive disorder, single episode, unspecified; F41.9 Anxiety disorder, unspecified; Z72.0 Tobacco use
CPT/HCPCS: 80048; 96361; 96374; 96375; 99283; J7030